=== PATIENT | male | born 1970 | race Caucasian/White ===

== ENCOUNTER 2019-04-20 17:17 | Emergency (ER) | payer OTHER ==
[2019-04-20] MEDS ORDERED: Diphtheria,Pertussis(Acell),Tetanus Vaccine 0.5 ML SDV IM ONE (17:50)
--- NOTE | 2019-04-20 18:22 | EDM.PDOC ---
ED HPI GENERAL MEDICAL PROBLEM - General Chief Complaint: Laceration Stated Complaint: left 5th finger laceration Time Seen by Provider: 04/20/19 17:47 Source of Information: Reports: Patient History Limitations: Reports: No Limitations - History of Present Illness INITIAL COMMENTS - FREE TEXT/NARRATIVE: Patient comes to ER with laceration of mid portion left lateral 5th digit after getting it caught on engine block at work. No numbness/tingling. No loss of function. No other injuries to the hand. No other presenting complaints. Left 5th finger Pain Score (Numeric/FACES): 2 - Related Data Allergies Allergy/AdvReac Type Severity Reaction Status Date / Time ibuprofen Allergy Airway Verified 04/20/19 17:21 Tightness Home Meds: Home Meds . [No Known Home Meds] 04/20/19 [History] Past Medical History - Past Health History Medical/Surgical History: Denies Medical/Surgical History ED ROS GENERAL - Review of Systems Review Of Systems: ROS reveals no pertinent complaints other than HPI. ED EXAM, SKIN/RASH Exam: See Below General Appearance: Alert, WD/WN, No Apparent Distress Head: Atraumatic, Normocephalic Neck: Supple Respiratory/Chest: No Respiratory Distress Extremities: Other (mild swelling left little finger. Laceration noted left little finger. Tendon function appears intact. NVI. No other signs of trauma to left hand/fingers. ) Neurological: Alert, Oriented, Normal Cognition, Normal Gait, No Motor/Sensory Deficits Psychiatric: Normal Affect, Normal Mood Skin: Warm, Dry ED SKIN PROCEDURES - Laceration/Wound Repair Left Digit - 5th (Baby) Appearance: Subcutaneous, Linear, Mildly Contaminated Distal NVT: Neuro & Vascular Intact, No Tendon Injury Anesthetic Type: Local Local Anesthesia - Lidocaine (Xylocaine): 1% Plain Local Anesthetic Volume: 3cc Skin Prep: Saline Exploration/Debridement/Repair: Wound Explored, In a Bloodless Field, Explored to Base, No Foreign Material Found, Other (grease scrubbed off of surface of skin near wound) Lac/Wound length In cm: 3.0 Suture Size: 4-0 # of Sutures: 5 Suture Type: Nylon, Interrupted Drain Placement: No Sterile Dressing Applied: Nurse Tetanus Status Addressed: Yes Complications: No Course - Vital Signs Last Recorded V/S: Last Vital Signs Temp 36.8 C 04/20/19 17:46 Pulse 98 04/20/19 17:46 Resp 16 09/20/19 17:46 BP 149/104 H 04/20/19 17:46 Pulse Ox 98 04/20/19 17:46 - Orders/Labs/Meds Orders: Active Orders 24 hr Category Date Time Status Vaccines to be Administered [RC] PER UNIT ROUTINE Care 04/20/19 17:50 Ordered Meds: Medications Discontinued Medications Generic Name Dose Route Start Last Admin Trade Name Freq PRN Reason Stop Dose Admin Diphtheria/Tetanus/Acell Pertussis 0.5 ml 04/20/19 17:50 04/20/19 18:11 Adacel IM 04/20/19 17:51 0.5 ml .ONCE ONE Administration Lidocaine HCl 5 ml 04/20/19 17:47 04/20/19 17:54 Xylocaine-Mpf 1% INJECT 04/20/19 17:48 5 ml ONETIME ONE Administration - Re-Assessments/Exams Free Text/Narrative Re-Assessment/Exam: 04/20/19 18:25 Laceration repaired. Wound care reviewed. Precautions reviewed. To follow up as needed PRN problems. Sutures out in 10-12 days. Suspect BP initially elevated to due stress of injury and having to come to the ER. BP improved over course of stay. Patient advised to have it rechecked on a "good day" to see if it is still elevated. Departure - Departure Time of Disposition: 18:20 Disposition: Home, Self-Care 01 Condition: Good Clinical Impression: Finger laceration Qualifiers: Encounter type: initial encounter Finger: little finger Damage to nail status: without damage Foreign body presence: without foreign body Laterality: left Qualified Code(s): S61.217A - Laceration without foreign body of left little finger without damage to nail, initial encounter - Discharge Information *PRESCRIPTION DRUG MONITORING PROGRAM REVIEWED*: Not Applicable *COPY OF PRESCRIPTION DRUG MONITORING REPORT IN PATIENT YAZMIN: Not Applicable Instructions: Sutured Wound Care, [id number] Referrals: PCP,None [Primary Care Provider] - Forms: ED Department Discharge Additional Instructions: Wound care as discussed. Keep wound covered at work to help avoid infection. If any problems or signs of infection develop please get rechecked. Otherwise have sutures removed TuesdayApr 30. Have BP rechecked on that day to see if it is within normal range. - My Orders Last 24 Hours: My Active Orders 04/20/19 17:50 Vaccines to be Administered [RC] PER UNIT ROUTINE - Assessment/Plan Last 24 Hours: My Active Orders 04/20/19 17:50 Vaccines to be Administered [RC] PER UNIT ROUTINE
[2019-04-20] MEDS ORDERED: Bacitracin/Neomycin/Polymyxin B Oint 0.9 GM U/D Packet TOP ONE (18:32)
== END 2019-04-20 18:49 | disposition home or self-care (01) ==
LOC: LL.ED 17:17
DX: Z88.6 Allergy status to analgesic agent (principal); S61.217A Laceration without foreign body of left little finger without damage to nail, initial encounter
CPT/HCPCS: 12002; 90471; 90715; 99282; J2001